=== PATIENT | female | born 1940 | race African-American/Black ===

== ENCOUNTER 2024-01-24 10:33 | Inpatient (IN) | payer OTHER ==
[~2024-01-24] VITALS: Ht 165.1 cm; Wt 71.5 kg
[~2024-01-24 10:33] MED LIST: EZET10TA24; FAMOTIDINE; GLIPPOW9
[2024-01-24 11:16] LABS: Basophils # (auto) 0 10 ^3/uL (0-0.2); Basophils % (auto) 0.9 % (0.0-2.0); Eosinophils # (auto) 0.1 10 ^3/uL (0-0.8); Eosinophils % (auto) 1.8 % (0.0-7.0); Hemoglobin 15.4 g/dL (12.2-16.2); Lymphocytes # (auto) 1.7 10 ^3/uL (0.4-5.4); Lymphocytes % (auto) 37.1 % (10.0-50.0); Mean Corpuscular Hgb Conc. 33.4 g/dL (32.0-36.0); Mean Corpuscular Volume 98.8 fL (80.0-100.0); Monocytes # (auto) 0.5 10 ^3/uL (0-1.3); Monocytes % (auto) 10.7 % (0.0-12.0); Neutrophils # (auto) 2.3 10 ^3/uL (1.6-8.6); Neutrophils % (auto) 49.5 % (37.0-80.0); Nucleated Red Blood Cells % 0.2 %; Platelet Count (auto) 199 10^3/uL (140-450); Red Blood Cells 4.66 10^6/uL (4.0-5.20); Red Cell Distribution Width 13.5 % (11.8-14.3); White Blood Cell 4.6 10^3/uL (4.4-10.8)
[2024-01-24 11:33] LABS: INR 0.99 (0.9-1.15); Partial Thromboplastin Time 28.5 SEC (24.5-34.5); Prothrombin Time 10.5 sec (9.3-11.8)
[2024-01-24 11:41] LABS: Alanine Aminotransferase 17 U/L (7-40); Albumin 4.5 g/dL (3.2-4.8); Alkaline Phosphatase 112 U/L (46-116); Anion Gap 7 (5-15); Aspartate Aminotransferase 18 U/L (13-40); BUN/Creatinine Ratio 7.8 (10.0-20.0); Bilirubin, Total 0.5 mg/dL (0.2-1.0); Blood Urea Nitrogen 10 mg/dL (9-23); Calcium 10.3 mg/dL (8.7-10.4); Carbon Dioxide 29 mmol/L (20-31); Chloride 106 mmol/L (98-107); Glucose 164 mg/dL (74-106); Potassium 3.9 mmol/L (3.5-5.1); Sodium 142 mmol/L (136-145); Total Protein 7.3 g/dL (5.7-8.2)
[2024-01-24 12:00] VITALS: PULSE 60; RESP 18; O2SAT 97
[2024-01-24] MEDS: cloNIDine HCL 0.1 MG TAB PO ONE (12:03)
[2024-01-24] MEDS: ASPirin 81 mg TAB PO ONE (12:03)
[2024-01-24] MEDS: NITROGLYCERIN 2% OINT 1GM PKG TD ONE (13:29)
[2024-01-24] MEDS ORDERED: NITROGLYCERIN 0.4 MG SL TAB SL PRN ×2 (15:15)
[2024-01-24] MEDS ORDERED: ACETAMINOPHEN 325 MG TAB PO PRN (15:15)
[2024-01-24] MEDS ORDERED: ONDANSETRON HCL 4 MG/2 ML VIAL IV PRN (15:15)
[2024-01-24] MEDS: PANTOPRAZOLE 40 MG/10 ML VIAL INJ IV ONE (15:30)
[2024-01-24 16:05] LABS: Magnesium 2.1 mg/dL (1.6-2.6)
[2024-01-24 19:24] LABS: INR 1.02 (0.9-1.15); Prothrombin Time 10.8 sec (9.3-11.8)
[2024-01-24 19:40] VITALS: BP 178/93; PULSE 60; RESP 19; TEMP 97.4; O2SAT 100
[2024-01-24 20:00] VITALS: PULSE 69
[2024-01-24] MEDS: cloNIDine HCL 0.1 MG TAB PO PRN (20:48)
[2024-01-24 20:51] VITALS: BP 178/93; PULSE 60; RESP 19; TEMP 97.4; O2SAT 100
[2024-01-24] MEDS: ATORVASTATIN 20 MG TAB PO SCH (22:00)
[2024-01-24] MEDS: ENOXAPARIN SOD 80 MG/0.8ML SYRINGE SC SCH (23:19)
[2024-01-25] VITALS (8 sets, daily range): BP systolic 130–165; BP diastolic 77–92; PULSE 18–71; RESP 16–18; TEMP 97.2–97.9; O2SAT 95–100
[2024-01-25] MEDS ORDERED: GINK120T3 PO (00:20)
[2024-01-25] MEDS ORDERED: CYA100I PO (00:20)
[2024-01-25] MEDS ORDERED: AML5T PO (00:20)
[2024-01-25] MEDS ORDERED: OMEG1205 PO (00:20)
[2024-01-25] MEDS ORDERED: METF-370 PO (00:20)
[2024-01-25] MEDS ORDERED: LISI40TA16 PO (00:20)
[2024-01-25] MEDS ORDERED: CHOL20007 PO (00:20)
[2024-01-25] MEDS ORDERED: EZET10TA22 PO (00:20)
[2024-01-25] MEDS ORDERED: ASCO100076 PO (00:20)
[2024-01-25] MEDS: SODIUM CHLORIDE 0.9% 1,000 ML IV SCH (04:35)
[2024-01-25 05:31] LABS: Basophils # (auto) 0 10 ^3/uL (0-0.2); Basophils % (auto) 0.5 % (0.0-2.0); Eosinophils # (auto) 0.1 10 ^3/uL (0-0.8); Eosinophils % (auto) 2.6 % (0.0-7.0); Hematocrit 38.9 % (36.0-46.0); Hemoglobin 13.4 g/dL (12.2-16.2); Lymphocytes # (auto) 2.1 10 ^3/uL (0.4-5.4); Lymphocytes % (auto) 47.8 % (10.0-50.0); Mean Corpuscular Hemoglobin 33.7 pg (28.0-32.0); Mean Corpuscular Hgb Conc. 34.5 g/dL (32.0-36.0); Mean Corpuscular Volume 97.7 fL (80.0-100.0); Monocytes # (auto) 0.4 10 ^3/uL (0-1.3); Monocytes % (auto) 10.1 % (0.0-12.0); Neutrophils # (auto) 1.7 10 ^3/uL (1.6-8.6); Nucleated Red Blood Cells % 0.2 %; Platelet Count (auto) 174 10^3/uL (140-450); Red Blood Cells 3.98 10^6/uL (4.0-5.20); Red Cell Distribution Width 13.3 % (11.8-14.3); White Blood Cell 4.4 10^3/uL (4.4-10.8)
[2024-01-25 05:36] LABS: Triglycerides 102 mg/dL (< 150)
[2024-01-25 05:37] LABS: LDL Cholesterol 140 mg/dL (< 100)
[2024-01-25 05:38] LABS: Cholesterol 223 mg/dL (< 200); HDL Cholesterol 67 mg/dL (40-59)
[2024-01-25 08:54] LABS: Chloride 109 mmol/L (98-107); Potassium 3.9 mmol/L (3.5-5.1); Sodium 142 mmol/L (136-145)
[2024-01-25 08:55] LABS: Anion Gap 6 (5-15); Carbon Dioxide 27 mmol/L (20-31)
[2024-01-25 08:56] LABS: Calcium 9.4 mg/dL (8.7-10.4)
[2024-01-25 09:00] LABS: BUN/Creatinine Ratio 11.1 (10.0-20.0); Blood Urea Nitrogen 13 mg/dL (9-23); Glucose 132 mg/dL (74-106)
[2024-01-25] MEDS: LOSARTAN POTASSIUM 25 MG TAB PO SCH (11:12)
[2024-01-25] MEDS: DOCUSATE SOD 100 MG CAP PO SCH (11:12)
[2024-01-25] MEDS: PANTOPRAZOLE 40 MG/10 ML VIAL INJ IV SCH (11:13)
[2024-01-25] MEDS: ASPirin 81 mg TAB PO SCH (11:13)
[2024-01-25] MEDS: amLODIPine BESYLATE 5 MG TAB PO SCH (14:30)
[2024-01-25] MEDS ORDERED: DEXTROSE (50%) 50ML SYRG IV PRN (15:15)
[2024-01-25] MEDS: ACCU-CHEK COMFORT CURVE STRIP VI SCH (17:00)
[2024-01-25] MEDS: InsuLIN REG 1unit/0.01ml Soln (100units/ml) SC SCH (17:00)
[2024-01-26 01:00] VITALS: BP 148/81; PULSE 76; RESP 18; TEMP 97.5; O2SAT 100
[2024-01-26 05:00] VITALS: BP 164/89; PULSE 76; RESP 18; TEMP 97.4; O2SAT 99
[2024-01-26 06:24] LABS: Basophils # (auto) 0 10 ^3/uL (0-0.2); Basophils % (auto) 0.5 % (0.0-2.0); Eosinophils # (auto) 0.1 10 ^3/uL (0-0.8); Eosinophils % (auto) 2.1 % (0.0-7.0); Hematocrit 37.3 % (36.0-46.0); Hemoglobin 13.1 g/dL (12.2-16.2); Lymphocytes # (auto) 1.5 10 ^3/uL (0.4-5.4); Lymphocytes % (auto) 40.9 % (10.0-50.0); Mean Corpuscular Volume 97.3 fL (80.0-100.0); Monocytes # (auto) 0.4 10 ^3/uL (0-1.3); Monocytes % (auto) 9.8 % (0.0-12.0); Neutrophils # (auto) 1.8 10 ^3/uL (1.6-8.6); Neutrophils % (auto) 46.7 % (37.0-80.0); Nucleated Red Blood Cells % 0.2 %; Platelet Count (auto) 175 10^3/uL (140-450); Red Blood Cells 3.84 10^6/uL (4.0-5.20); Red Cell Distribution Width 13.2 % (11.8-14.3); White Blood Cell 3.8 10^3/uL (4.4-10.8)
[2024-01-26 06:27] LABS: Chloride 110 mmol/L (98-107); Potassium 4.2 mmol/L (3.5-5.1); Sodium 142 mmol/L (136-145)
[2024-01-26 06:28] LABS: Anion Gap 6 (5-15); Calcium 9.4 mg/dL (8.7-10.4); Carbon Dioxide 26 mmol/L (20-31)
[2024-01-26 06:33] LABS: BUN/Creatinine Ratio 11.8 (10.0-20.0); Blood Urea Nitrogen 14 mg/dL (9-23); Glucose 135 mg/dL (74-106)
[2024-01-26 08:00] VITALS: PULSE 66; PULSE 68; O2SAT 100
[2024-01-26 09:00] VITALS: BP 132/78; PULSE 68; RESP 24; TEMP 98.1; O2SAT 100
[2024-01-26] MEDS: ENOXAPARIN SOD 40 MG/0.4 ML SYRINGE SC SCH (09:15)
[2024-01-26 09:36] LABS: Urine Bacteria None Seen /hpf (None Seen)
[2024-01-26 09:48] LABS: Urine Blood Negative /uL (Negative); Urine Clarity Clear (Clear); Urine Protein, UAD Negative (Negative); Urine Specific Gravity 1.007 (1.001-1.035); Urine Urobilinogen Normal (Negative); Urine WBC 1 /hpf (0 - 5); Urine pH 6.5 (5.0-9.0)
[2024-01-26 09:52] LABS: Urine Color STRAW (Yellow)
[2024-01-26 11:12] VITALS: BP 132/78; TEMP 36.7
== END 2024-01-26 14:24 | disposition home or self-care (01) | DRG 206 ==
LOC: ER 10:33 → TELE 15:15 → TELE-EAST 19:35
PROVIDERS: ADMIT Internal Medicine; ATTEND Internal Medicine
DX: M94.0 Chondrocostal junction syndrome [Tietze] (principal); I16.1 Hypertensive emergency; N17.9 Acute kidney failure, unspecified; I25.9 Chronic ischemic heart disease, unspecified; I12.9 Hypertensive chronic kidney disease with stage 1 through stage 4 chronic kidney disease, or unspecified chronic kidney disease; N18.9 Chronic kidney disease, unspecified; K21.9 Gastro-esophageal reflux disease without esophagitis; E78.5 Hyperlipidemia, unspecified; E11.22 Type 2 diabetes mellitus with diabetic chronic kidney disease; Z88.6 Allergy status to analgesic agent; Z90.710 Acquired absence of both cervix and uterus
CPT/HCPCS: 36415; 70450; 70551; 71045; 80048; 80053; 80061; 81001; 82962; 83036; 83690; 83735; 84484; 85025; 85379; 85610; 85730; 93306; 93970; 99291; G0378; J1815; J2470